=== PATIENT | female | born 1990 | race Caucasian/White ===

== ENCOUNTER 2017-06-03 14:56 | Emergency (ER) | payer OTHER ==
[~2017-06-03] VITALS: Ht 160 cm; Wt 73.6 kg
[2017-06-03 14:58] VITALS: TEMP 36.3; Ht 160 cm; Wt 73.6 kg
[2017-06-03 15:48] LABS: BASO % 0.3 %; BASO ABS # 0.03 K/uL (0-0.2); COMPLETE YES; EOS % 1.8 %; HEMATOCRIT 46.5 % (37-47); IG% 0.6 %; LYMPH % 25.9 %; LYMPH ABS # 3.04 K/uL (1.2-3.4); MEAN CELL VOLUME 88.9 fL (80-100); MEAN CORPUSCULAR HEMOGLOBIN 31.2 pg (25-34); MEAN CORPUSCULAR HGB CONC 35.1 g/dl (32-36); MEAN PLATELET VOLUME 11.1 fL (7.4-10.4); NEUT % 63.4 %; PLATELET COUNT 290 K/uL (130-400); RED BLOOD COUNT 5.23 M/uL (4.2-5.4); WHITE BLOOD COUNT 11.74 K/uL (4.8-10.8)
[2017-06-03 16:04] LABS: BUN/CREATININE RATIO 5.9 (10-20); CALCIUM 9.1 mg/dl (8.5-10.1); CREATININE 0.72 mg/dl (0.60-1.20); POTASSIUM 3.3 mmol/L (3.5-5.1)
[2017-06-03] MEDS ORDERED: INHALER INH (16:35)
[2017-06-03] MEDS ORDERED: LORAZEPAM 0.5 MG TAB ONE (16:53)
[2017-06-03 17:22] LABS: THYROID STIMULATING HORMONE 1.43 uIu/ml (0.300-4.500)
--- NOTE | 2017-06-03 18:26 | DIAGNOSTIC IMAGING REPORT ---
MRI OF THE BRAIN COMBO CLINICAL HISTORY: Chronic blurry vision. Headache. COMPARISON STUDY: No priors. TECHNIQUE: MRI of the brain was performed utilizing various T1 and T2-weighted sequences in the axial, sagittal, and coronal planes. Contrast-enhanced sequences were acquired following the administration of 7.3 cc of Gadavist. FINDINGS: Brain parenchyma: A 3 mm focus of T2 hyperintensity is seen in the left thalamus on axial image #12. This is likely related to a remote insult or tiny perivascular space and is of doubtful significance as an isolated finding. The brain parenchyma is otherwise normal in appearance. There is no hemorrhage or mass effect. There is no restricted diffusion to suggest acute ischemia. No enhancing mass lesion is identified on the postcontrast images. Miramontes-white matter differentiation is preserved. No extra-axial fluid collection is seen. The cerebellar tonsils are normal in configuration. Ventricles, sulci, and cisterns: Normal in configuration. Pituitary and sella: Unremarkable. Intracranial vasculature: Normal flow voids are maintained at the skull base. Orbits: The bony orbits are grossly intact. Orbital contents are normal in appearance. Sinuses and mastoids: Trace mucosal thickening is seen in the right frontal sinus. The remaining paranasal sinuses are clear, as are the mastoid air cells. Calvarium: Unremarkable. Cervical cord: Partially visualized cervical spinal cord is normal in morphology and signal intensity. IMPRESSION: No acute intracranial abnormality. Electronically signed by: Yazan Kinney M.D. 06/03/2017 6:25 PM Dictated Date/Time: 06/03/2017 6:14 PM
[2017-06-03 18:49] VITALS: BP 105/73; PULSE 78; O2SAT 98
--- NOTE | 2017-06-03 19:58 | EMERGENCY ROOM VISIT NOTE ---
History Report prepared by Mckenzie: Freddie Ontiveros Under the Supervision of: Dr. Ron Moreland M.D. First contact with patient: 15:03 Chief Complaint: EYE ASSESSMENT Stated Complaint: REFERRED FOR MRI History of Present Illness The patient is a 26 year old female who presents to the Emergency Room for an eye assessment. She has been experiencing trouble with her vision for about 2 to 3 years. She is unable to drive secondary to her visual impairments which she notes are especially bad at night. She states that she is extremely near- sighted and only able to read or watch television if she is extremely close to it. Today, she saw an Data Processing Operator named Dr. Esp[facility]za [facility] [place] [facility] an eye assessment. During the assessment, the patient states that she had about a 50% improvement to her vision with the corrective lens, but it was still significantly blurry. The physician then checked her eye pressures and dyed her eyes as well which were both negative for any physiological issue.After her visit, she was referred to her PCP for an MRI to rule out any physiological process in her brain. However, after her PCP and Dr. Woodall discussed further, they referred her to the ER for the MRI. When asked why she had not seen an Gristmill Operator prior to today, she stated that in the past she was told that nothing was wrong with her vision. She was seen by an eye doctor at a different [facility]. Along with her vision trouble, the patient has been having intermittent headaches once or twice a week for the past year. Her sister has a medical history of migraines and a brain tumor, but no one else in her family has this history. She denies experiencing any fevers, vomiting, numbness, weakness, or unintended weight loss. She has a past medical history of asthma, bipolar disorder, major depressive disorder, and hyperlipidemia. She smokes cigarettes daily. She notes that she has been bumping into objects accidentally since she was very little. Source of History: patient Onset: 3 years Position: eye (bilateral) Symptom Intensity: severe Quality: other (Vision trouble) Timing: constant Associated Symptoms: + headache, No fevers, No vomiting, No weakness, No numbness Review of Systems See HPI for pertinent positives & negatives. A total of 10 systems reviewed and were otherwise negative. Past Medical & Surgical Medical Problems: (1) Asthma (2) Bipolar disorder (3) HLD (hyperlipidemia) (4) Major depressive disorder Family History Brain tumor Migraine Social History Smoking Status: Current Every Day Smoker Drug Use: none Marital Status: Housing Status: lives with family Current/Historical Medications Scheduled PRN [Inhaler], 2 PUFF INH PRN PRN for SOB/Wheezing Allergies Coded Allergies: Latex1 -Allergic Contact Dermititis (Verified Allergy, Severe, DERMATITIS , 06/03/17) Physical Exam Vital Signs Date Time Temp Pulse Resp B/P (MAP) Pulse Ox O2 Delivery O2 Flow Rate FiO2 06/03/17 18:49 78 15 105/73 98 Room Air 06/03/17 18:10 77 16 114/69 97 Room Air 06/03/17 14:58 36.3 90 18 123/84 95 Room Air Physical Exam Constitutional: Vital signs reviewed. Eyes: Pupils are equal round reactive to light. Pupils are not dilated. Conjunctiva are noninjected. ENT: Pharynx is clear without erythema or exudate. Mucous membranes are moist. Neck supple without meningeal signs. Respiratory: Clear to auscultation bilaterally. Breath sounds are equal bilaterally. Cardiovascular: Tachycardic rate at 115 with a regular rhythm. No rubs or gallops. GI: Soft, nondistended and nontender. Bowel sounds are present. Musculoskeletal: No peripheral edema. No lower extremity tenderness. Integumentary: No cyanosis. Neurological: The patient is awake and alert. Cranial nerves II-XII are intact. Motor is 5 out of 5 all extremities. Sensation is intact to light touch all extremities. Normal speech. No pronator drift. No limb ataxia. Visual field testing by confrontation shows a loss of peripheral vision bilaterally. Finger counting within three feet of the face. Psychiatric: Normal affect. Medical Decision & Procedures ER Provider Diagnostic Interpretation: Radiology results as stated below per my review and the radiologist's interpretation: MRI OF THE BRAIN COMBO CLINICAL HISTORY: Chronic blurry vision. Headache. COMPARISON STUDY: No priors. TECHNIQUE: MRI of the brain was performed utilizing various T1 and T2-weighted sequences in the axial, sagittal, and coronal planes. Contrast-enhanced sequences were acquired following the administration of 7.3 cc of Gadavist. FINDINGS: Brain parenchyma: A 3 mm focus of T2 hyperintensity is seen in the left thalamus on axial image #12. This is likely related to a remote insult or tiny perivascular space and is of doubtful significance as an isolated finding. The brain parenchyma is otherwise normal in appearance. There is no hemorrhage or mass effect. There is no restricted diffusion to suggest acute ischemia. No enhancing mass lesion is identified on the postcontrast images. Miramontes-white matter differentiation is preserved. No extra-axial fluid collection is seen. The cerebellar tonsils are normal in configuration. Ventricles, sulci, and cisterns: Normal in configuration. Pituitary and sella: Unremarkable. Intracranial vasculature: Normal flow voids are maintained at the skull base. Orbits: The bony orbits are grossly intact. Orbital contents are normal in appearance. Sinuses and mastoids: Trace mucosal thickening is seen in the right frontal sinus. The remaining paranasal sinuses are clear, as are the mastoid air cells. Calvarium: Unremarkable. Cervical cord: Partially visualized cervical spinal cord is normal in morphology and signal intensity. IMPRESSION: No acute intracranial abnormality. Electronically signed by: Yazan Kinney M.D. 06/03/2017 6:25 PM Dictated Date/Time: 06/03/2017 6:14 PM Laboratory Results 06/03/17 15:35 Red Blood Count 5.23, Mean Corpuscular Volume 88.9, Mean Corpuscular Hemoglobin 31.2, Mean Corpuscular Hemoglobin Concent 35.1, Mean Platelet Volume 11.1, Neutrophils (%) (Auto) 63.4, Lymphocytes (%) (Auto) 25.9, Monocytes (%) (Auto) 8.0, Eosinophils (%) (Auto) 1.8, Basophils (%) (Auto) 0.3, Neutrophils # (Auto) 7.45, Lymphocytes # (Auto) 3.04, Monocytes # (Auto) 0.94, Eosinophils # (Auto) 0.21, Basophils # (Auto) 0.03 06/03/17 15:35 Test 06/03/17 15:35 White Blood Count 11.74 K/uL (4.8-10.8) Red Blood Count 5.23 M/uL (4.2-5.4) Hemoglobin 16.3 g/dL (12.0-16.0) Hematocrit 46.5 % (37-47) Mean Corpuscular Volume 88.9 fL (80-100) Mean Corpuscular Hemoglobin 31.2 pg (25-34) Mean Corpuscular Hemoglobin Concent 35.1 g/dl (32-36) Platelet Count 290 K/uL (130-400) Mean Platelet Volume 11.1 fL (7.4-10.4) Neutrophils (%) (Auto) 63.4 % Lymphocytes (%) (Auto) 25.9 % Monocytes (%) (Auto) 8.0 % Eosinophils (%) (Auto) 1.8 % Basophils (%) (Auto) 0.3 % Neutrophils # (Auto) 7.45 K/uL (1.4-6.5) Lymphocytes # (Auto) 3.04 K/uL (1.2-3.4) Monocytes # (Auto) 0.94 K/uL (0.11-0.59) Eosinophils # (Auto) 0.21 K/uL (0-0.5) Basophils # (Auto) 0.03 K/uL (0-0.2) RDW Standard Deviation 38.7 fL (36.4-46.3) RDW Coefficient of Variation 12.1 % (11.5-14.5) Immature Granulocyte % (Auto) 0.6 % Immature Granulocyte # (Auto) 0.07 K/uL (0.00-0.02) Anion Gap 5.0 mmol/L (3-11) Est Creatinine Clear Calc Drug Dose 115.8 ml/min Estimated GFR () 135.9 Estimated GFR (Non- 117.2 BUN/Creatinine Ratio 5.9 (10-20) Calcium Level 9.1 mg/dl (8.5-10.1) Thyroid Stimulating Hormone (TSH) 1.430 uIu/ml (0.300-4.500) Free Thyroxine 0.88 ng/dl (0.80-1.60) Laboratory results as reviewed by me. Medications Administered Medications (Trade) Dose Ordered Sig/Jailyn Route Start Time Stop Time Status Last Admin Dose Admin Lorazepam (Ativan Tab) 0.5 mg STK-MED ONCE .ROUTE 06/03/17 16:53 06/03/17 16:54 DC 06/03/17 16:56 0.5 MG ED Course 1503: The patient was evaluated in room B5. A complete history and physical exam was performed. 1538: I spoke with Dr. Espinoza of Ophthalmology at this time. We discussed the patient's case. She said that the patient's visual acuity uncorrected was 20/80 , 20/100. After correction, her acuity was about 20/40-. When they checked her visual laboy by confrontation, they were constricted temporally. However with machine visual field tested, they were constricted bilaterally to 360 degrees. Also, she states that the patient's retinas were completely normal as well as the visual portion of the optic nerves. She also has a loss of color vision. 1652: Ordered Ativan Tab 0.5 mg .ROUTE 183: I spoke with Dr. Manzano of Neurology at this time. He recommended that she sees a retinal specialist Gristmill Operator. He believes that it is nothing central or neurologic at this time. 184: Upon reevaluation, the patient appeared to have improvement of her symptoms. I discussed tonight's findings with her. She verbalized agreement of the treatment plan. I recommended that she see Dr. Huffman of Ophthalmology, but she is planning on seeing one where she lives. She will follow up with Dr. Nguyễn. She was discharged home. Medical Decision This is a 26-year-old female who presents with visual disturbance and headache. Differential diagnosis includes intracranial mass, pituitary tumor, demyelinating disease, retinal disease, myopia, migraine. I did perform a limited focused review of portions of the patient's old chart on the electronic medical record. The patient has had no recent pertinent visits to this hospital. I did evaluate the patient as noted above. I did obtain history from the patient as well as her . I did also speak to Dr. Espinoza as noted above. IV access was established. The patient was placed on a continuous quality assurance monitor. I did order and review the patient's blood work as noted in the electronic medical record. She has mild hypokalemia. I did order an MRI of the brain. I did review the images myself as well as the radiology report as described above. There is no evidence of acute abnormality. I did discuss the case with Dr. Manzano of neurology. He felt that her symptoms seemed more likely related to an ophthalmologic issue and recommended that she see Dr. Huffman who is a retinologist. I did discuss this with the patient and her . They state that they really have arrangements to see an long haul truck driver at the group closer to her. I gave her Dr. Huffman name and number just in case and advised her to also Dr. Meaz. She was discharged in good condition. Medication Reconcilliation Current Medication List: was personally reviewed by me Blood Pressure Screening Patient's blood pressure: Elevated blood pressure Blood pressure disposition: Elevated BP felt to be situational Consults Time Called: 1529 Consulting Physician: Dr. Espinoza - Optometry Returned Call: [phone] We discussed the patient's case. She said that the patient's visual acuity uncorrected was 20/80, 20/100. After correction, her acuity was about 20/40-. When they checked her visual laboy by confrontation, they were constricted temporally. However with machine visual field tested, they were constricted bilaterally to 360 degrees. Also, she states that the patient's retinas were completely normal as well as the visual portion of the optic nerves. Also, the patient has a loss of color vision. Additional Consults: Time Called: 1835 Consulted Physician: Dr. Manzano - Neurology Returned Call: [phone] Additional Comments: He recommended that she sees a retinal specialist Gristmill Operator. He believes that it is nothing central or neurologic at this time. Impression Primary Impression: Visual disturbance Additional Impressions: Chronic headache Hypokalemia Scribe Attestation The scribe's documentation has been prepared under my direct and personally reviewed by me in its entirety. I confirm that the note above accurately reflects all work, treatment, procedures, and medical decision making performed by me. Departure Information Dispostion Home / Self-Care Referrals Manish Huffman,D.O. No Doctor, Assigned Forms HOME CARE DOCUMENTATION FORM, IMPORTANT VISIT INFORMATION, WORK / SCHOOL INSTRUCTIONS Patient Instructions Diet High Potassium Dc, Hypokalemia Dc, My [facility] Additional Instructions You have been examined and treated today on an emergency basis only. This is not a substitute for, or an effort to provide, complete comprehensive medical care. It is impossible to recognize and treat all injuries or illnesses in a single emergency department visit. It is therefore important that you follow up closely with your physician and Dr. Huffman of ophthalmology. Call as soon as possible for an appointment. Return for worsening symptoms or if you develop fever, numbness or weakness on one side of your body, difficulties with your speech or walking, or any other concerning symptoms. Problem Qualifiers Additional Impressions: Chronic headache Headache type: unspecified Intractability: not intractable Qualified Codes : R51 - Headache
== END 2017-06-03 18:56 | disposition home or self-care (01) ==
LOC: C.EDB 14:57
DX: H53.8 Other visual disturbances (principal); R51 Headache; E87.6 Hypokalemia; J45.909 Unspecified asthma, uncomplicated; F31.9 Bipolar disorder, unspecified; E78.5 Hyperlipidemia, unspecified; F17.210 Nicotine dependence, cigarettes, uncomplicated